=== PATIENT | male | born 2000 | race Caucasian/White ===

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

== ENCOUNTER → 2020-10-15 | Outpatient (CLI) | payer BC ==
--- NOTE | 2020-10-15 09:30 | XR ---
EXAMINATION TYPE: XR chest 2V DATE OF EXAM: 10/15/2020 COMPARISON: None HISTORY: 21-year-old male R0602, shortness of breath. TECHNIQUE: Frontal and lateral views FINDINGS: The cardiomediastinal silhouette, aorta, and pulmonary vasculature are within normal limits. Lungs an d pleural spaces are clear. IMPRESSION: No acute cardiopulmonary process.
== END | disposition home or self-care (01) ==
LOC: RADXRYALE 08:52
PROVIDERS: ATTEND Physician Assistant Medical
DX: R06.02 Shortness of breath (principal)
CPT/HCPCS: 71046

== ENCOUNTER → 2024-05-16 | Outpatient (CLI) | payer BC ==
--- NOTE | 2024-05-16 12:27 | CT ---
EXAMINATION TYPE: CT elbow RT wo con DATE OF EXAM: 05/16/2024 9:31 AM COMPARISON: None CLINICAL INDICATION: Male, 23 years old with history of S52.121A DISP FX OF HEAD OF RIGHT RADIUS, INI T FOR; PHH, Displaced fx RT radial head TECHNIQUE: Axial images were obtained of the CT elbow RT wo con, Additional coronal and sagittal refo rmatted images and soft tissue and bone window were obtained for review. 3-D reconstruction was creat ed on a separate workstation. Contrast used: mL of , (None if empty) Oral contrast used: (None if empty) CT DLP: 248.80 mGycm, Automated exposure control for dose reduction was used. FINDINGS: Comminuted Intra-articular fracture of the radial head with mild depression of the 3 mm. Th e remainder of the osseous structures appear intact. There is small joint effusion. IMPRESSION: Comminuted Intra-articular fracture of the radial head with mild depression of the 3 mm [facility] Liudmila Ley, , 05/16/2024 12:24 PM
== END | disposition home or self-care (01) ==
LOC: RADCTMAIN 08:59
PROVIDERS: ATTEND Orthopaedic Surgery
DX: S52.121A Displaced fracture of head of right radius, initial encounter for closed fracture (principal); X58.XXXA Exposure to other specified factors, initial encounter